=== PATIENT | male | born 1965 | race Two or more races ===

== ENCOUNTER 2021-12-18 17:29 | Emergency (ER) | payer OTHER ==
[~2021-12-18] VITALS: Ht 170.2 cm; Wt 63.5 kg
[2021-12-18 17:33] VITALS: BP 152/83
== END 2021-12-18 20:03 | disposition home or self-care (01) ==
LOC: ER 17:29
DX: S92.352A Displaced fracture of fifth metatarsal bone, left foot, initial encounter for closed fracture (principal); X50.1XXA Overexertion from prolonged static or awkward postures, initial encounter; Y93.89 Activity, other specified; Y92.89 Other specified places as the place of occurrence of the external cause; Y99.8 Other external cause status
CPT/HCPCS: 29515; 73630

== ENCOUNTER 2024-12-04 13:31 | Inpatient (IN) | payer MEDICAID, OTHER ==
[~2024-12-04] VITALS: Ht 170.2 cm; Wt 66.0 kg
--- NOTE | 2024-12-04 13:41 | ECG ---
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
[2024-12-04 13:59] LABS: Basophils # (auto) 0.1 10 ^3/uL (0-0.2); Eosinophils # (auto) 0 10 ^3/uL (0-0.8); Hemoglobin 15.9 g/dL (13.5-17.5); Monocytes # (auto) 0.3 10 ^3/uL (0-1.3); Nucleated Red Blood Cells % 0.1 %; Platelet Count (auto) 323 10^3/uL (140-450)
[2024-12-04 14:01] LABS: Basophils % (auto) 1.9 % (0.0-2.0); Eosinophils % (auto) 0.4 % (0.0-7.0); Hematocrit 45.5 % (41.0-53.0); Lymphocytes # (auto) 1.2 10 ^3/uL (0.4-5.4); Lymphocytes % (auto) 25.7 % (10.0-50.0); Mean Corpuscular Hemoglobin 34.1 pg (28.0-32.0); Mean Corpuscular Volume 97.3 fL (80.0-100.0); Monocytes % (auto) 5.4 % (0.0-12.0); Neutrophils # (auto) 3.1 10 ^3/uL (1.6-8.6); Neutrophils % (auto) 66.6 % (37.0-80.0); Red Blood Cells 4.67 10^6/uL (4.5-5.90); Red Cell Distribution Width 12.5 % (11.8-14.3); White Blood Cell 4.7 10^3/uL (4.4-10.8)
--- NOTE | 2024-12-04 14:12 | ED.PDOC ---
HPI Comments 59y M who presents to the ED for chief complaint of chest pain. Pt states he has been having chest pain for the past 6 days. Pt states the pain is located in the center of his chest, constant, aching in nature, intermittent, wikth pain radiating to the L arm with noted exacerbating factor of deep inspiration and no relieving factors. Pt has associated shortness of breath and chills but otherwise denies any other symptoms at this time. Pt has noted BP of 142/87 with all other vitals in normal range. Pt otherwise states he did not come sooner to the ED for his complaints due to insurance problems. Pt otherwise denies any other symptoms at this time. Chief Complaint: Chest Pain Time Seen by MD: 14:06 Primary Care Provider: [facility] Reviewed Notes: Nurses Notes Allergies: Coded Allergies: NO KNOWN ALLERGIES (Unverified , 12/18/21) Information Source: Patient Mode of Arrival: Ambulatory Brought in by: self Severity: Moderate Timing: Days Duration: Since onset Prehospital treatment: None Location: Chest (R) Radiation: No Radiation Quality: Sharp, Pressure Onset: At Rest Cardiac Risk Factors: None PE Risk Factors: None Modifying Factors: Exertion Associated Signs and Symptoms: SOB, Other (chills) Past Medical History PAST MEDICAL HISTORY: Cancer Surgical History: Denies all surgeries Surgical History (Other): L foot surgery Family History Family History: Reviewed,noncontributory to illness, No family hx of DM, No family hx of Heart keanu, No family hx of HTN, No family hx ofKidney keanu, No family hx of Liver keanu, No family hx of Lung keanu, No family hx of Stroke, Family hx of Cancer Social History Smoker: Non-Smoker Alcohol: Denies ETOH Use Drugs: Denies Drug Use Lives In: Home Constitutional: reports: chills; denies: diaphoresis, fatigue, fever, malaise, sweats, weakness, others EENTM: denies: blurred vision, double vision, ear bleeding, ear discharge, ear drainage, ear pain, ear ringing, eye pain, eye redness, hearing loss, mouth pain, mouth swelling, nasal discharge, nose bleeding, nose congestion, nose pain, photophobia, tearing, throat pain, throat swelling, voice changes, others Respiratory: reports: shortness of breath; denies: cough, hemoptysis, orthopnea, SOB at rest, SOB with excertion, stridor, wheezing, others Cardiovascular: reports: chest pain; denies: dizzy spells, diaphoresis, Dyspnea on exertion, edema, irregular heart beat, left arm pain, lightheadedness, palpitations, PND, syncope, others Gastrointestinal: denies: abdomen distended, abdominal pain, blood streaked bowels, constipated, diarrhea, dysphagia, difficulty swallowing, hematemesis, melena, nausea, poor appetite, poor fluid intake, rectal bleeding, rectal pain, vomiting, others Genitourinary: denies: burning, dysuria, flank pain, frequency, hematuria, incontinence, penile discharge, penile sore, pain, testicle pain, testicle swelling, urgency, others Neurological: denies: dizziness, fainting, headache, left sided numbness, left sided weakness, numbness, paresthesia, pre-existing deficit, right sided numbness, right sided weakness, seizure, speech problems, tingling, tremors, weakness, others Musculoskeletal: denies: back pain, gout, joint pain, joint swelling, muscle pain, muscle stiffness, neck pain, others Integumetry: denies: bruises, change in color, change in hair/nails, dryness, laceration, lesions, lumps, rash, wounds, others Allergic/Immunocompromised: denies: Difficulty Healing, Frequent Infections, Hives, Itching, others Hematologic/Lymphatic: denies: anemia, blood clots, easy bleeding, easy bruising, swollen glands, others Endocrine: denies: excessive hunger, excessive sweating, excessive thirst, excessive urination, flushing, intolerance to cold, intolerance to heat, unexplained weight gain, unexplained weight loss, others Psychiatric: denies: anxiety, bipolar disorder, depression, hopeless, panic disorder, schizophrenia, sleepless, suicidal, others All Other Systems: Reviewed and Negative Physical Exam General Appearance: Moderate Distress HEENT: Normal ENT Inspection, Pharynx Normal, TMs Normal Neck: Full Range of Motion, Non-Tender, Normal, Normal Inspection Respiratory: Chest Non-Tender, Lungs Clear, No Accessory Muscle Use, No Respiratory Distress, Normal Breath Sounds Cardiovascular: No Edema, No JVD, No Murmur, No Gallop, Normal Peripheral Pulses, Regular Rate/Rhythm Breast Exam: Deferred Gastrointestinal: No Organomegaly, Non Tender, No Pulsatile Mass, Normal Bowel Sounds, Soft Genitalia: Deferred Pelvic: Deferred Rectal: Deferred Extremities: No calf tenderness, Normal capillary refill, Normal inspection, Normal range of motion, Non-tender, No pedal edema Musculoskeletal : Apperance: Normal 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 Was a procedure done?: No CP Differential Dx Differential Diagnosis: Angina, Anxiety / Panic Attack, Electrolyte Disorder Differential Diagnosis: HTN Essential, HTN Accelerated Differential Diagnosis: Chest Wall Pain, Costochondritis, Pericarditis X-Ray, Labs, Meds, VS Vital Signs Date Time Temp Pulse Resp B/P (MAP) Pulse Ox O2 Delivery O2 Flow Rate FiO2 12/04/24 14:17 91 12/04/24 14:12 104 12/04/24 13:38 104 12/04/24 13:35 98.9 81 18 142/87 (105) 99 Lab Test 12/04/24 14:44 12/04/24 13:37 Range/Units Troponin I High Sensitivity 3 L 3 L </=54 ng/L White Blood Count 4.7 4.4-10.8 10^3/uL Red Blood Count 4.67 4.5-5.90 10^6/uL Hemoglobin 15.9 13.5-17.5 g/dL Hematocrit 45.5 41.0-53.0 % Mean Corpuscular Volume 97.3 80.0-100.0 fL Mean Corpuscular Hemoglobin 34.1 H 28.0-32.0 pg Mean Corpuscular Hemoglobin Concent 35.0 32.0-36.0 g/dL Red Cell Distribution Width 12.5 11.8-14.3 % Platelet Count 323 140-450 10^3/uL Mean Platelet Volume 7.9 6.9-10.8 fL Neutrophils (%) (Auto) 66.6 37.0-80.0 % Lymphocytes (%) (Auto) 25.7 10.0-50.0 % Monocytes (%) (Auto) 5.4 0.0-12.0 % Eosinophils (%) (Auto) 0.4 0.0-7.0 % Basophils (%) (Auto) 1.9 0.0-2.0 % Neutrophils # (Auto) 3.1 1.6-8.6 10 ^3/uL Lymphocytes # (Auto) 1.2 0.4-5.4 10 ^3/uL Monocytes # (Auto) 0.3 0-1.3 10 ^3/uL Eosinophils # (Auto) 0 0-0.8 10 ^3/uL Basophils # (Auto) 0.1 0-0.2 10 ^3/uL Nucleated Red Blood Cells 0.1 % Sodium Level 137 136-145 mmol/L Potassium Level 3.9 3.5-5.1 mmol/L Chloride Level 100 98-107 mmol/L Carbon Dioxide Level 28 20-31 mmol/L Anion Gap 9 5-15 Blood Urea Nitrogen 11 9-23 mg/dL Creatinine 0.96 0.700-1.30 mg/dL Glomerular Filtration Rate Calc 92 >90 mL/min BUN/Creatinine Ratio 11.5 10.0-20.0 Serum Glucose 101 74-106 mg/dL Calcium Level 10.2 8.7-10.4 mg/dL EXAM: XY CHEST PORTABLE IMPRESSION: No acute cardiopulmonary disease. IV Hep-Lock was established The patient was being given aspirin here in the emergency department's The patient's CBC and chemistry panel are within normal limits The troponin level x2 is negative At this time, the patient was being admitted The diagnosis is acute coronary syndrome Images Reviewed?: Images reviewed and evaluated by me Time of 1ST Reevaluation: 14:35 Reevaluation 1ST: Unchanged Patient Education/Counseling: Diagnosis, Treatment, Prognosis Family Education/Counseling: No Family Present Departure 1 Departure Time of Disposition: 16:42 Impression: Primary Impression: Acute coronary syndrome Disposition: 09 ADMITTED INPATIENT Admit to: Tele Condition: Fair Critical Care Note Critical Care Time?: No Stability Stability form required: Yes Unstable for transfer: Telemetry monitoring (Telemetry monitoring required), ED Physician Assesment (Clinical assesment) Heart Score Heart Score: Heart Score Response (Comments) Value History Slightly Suspicious 0 EKG Normal 0 Age 45-64 1 Risk Factors No known risk factors 0 Troponin Normal limit 0 Total 1 I personally scribed for MANDY CRAVEN MD ([email or web address]) on 12/04/24 at 14:12. Electronically submitted by Negar Lim ([facility] I personally scribed for MANDY CRAVEN MD ([email or web address]) on 12/04/24 at 15:00. Electronically submitted by Negar Lim ([facility]). MANDY CRAVEN MD Dec 04, 2024 14:12
[2024-12-04 14:13] LABS: Chloride 100 mmol/L (98-107); Potassium 3.9 mmol/L (3.5-5.1); Sodium 137 mmol/L (136-145)
[2024-12-04 14:14] LABS: Anion Gap 9 (5-15); Calcium 10.2 mg/dL (8.7-10.4); Carbon Dioxide 28 mmol/L (20-31)
[2024-12-04 14:19] LABS: BUN/Creatinine Ratio 11.5 (10.0-20.0); Blood Urea Nitrogen 11 mg/dL (9-23); Glucose 101 mg/dL (74-106)
--- NOTE | 2024-12-04 14:19 | DVH ---
EXAM: XY CHEST PORTABLE Indication: chest pain Technique: Single frontal view of the chest was obtained Comparison: None FINDINGS: Lines and Tubes: None Lungs: No focal consolidation. Pleura: No effusion. No pneumothorax. Cardiomediastinal contours: Unremarkable Bones: No acute osseous abnormality. IMPRESSION: No acute cardiopulmonary disease.
[2024-12-04 20:10] LABS: Urine Bacteria None Seen /hpf (None Seen)
[2024-12-04 20:25] LABS: Urine Blood Negative /uL (Negative); Urine Clarity Clear (Clear); Urine Color Yellow (Yellow); Urine Mucus FEW (None Seen); Urine Protein, UAD TRACE (Negative); Urine Squamous Epithelial Cell FEW /hpf (<5); Urine Urobilinogen Normal (Negative); Urine WBC 1 /HPF (0-3); Urine pH 5.5 (5.0-9.0)
[2024-12-04] MEDS: LOSARTAN POTASSIUM 50 MG TAB PO SCH (21:15)
[2024-12-04] MEDS: PANTOPRAZOLE 40 MG/10 ML VIAL INJ IV SCH (22:07)
[2024-12-04 23:11] VITALS: BP 155/86; PULSE 68; RESP 18; TEMP 97.8; O2SAT 96
[2024-12-05 01:00] VITALS: BP 131/83; PULSE 72; RESP 18; TEMP 97.7; O2SAT 98
[2024-12-05] MEDS ORDERED: ACETAMINOPHEN 325 MG TAB PO PRN (04:00)
--- NOTE | 2024-12-05 04:00 | DVHHPRES ---
History of Present Illness Resident Creating Document: BARRERA ORTEGA RESIDENT Reason for Visit: Chest pain History of Present Illness A 59y male with PMHx skin cancer who came to the ED due to chest pain, the pain is midsternal and epigastric, that get worse when he lays down and when he moves the arm, no pain with exertion. He denies any other symptoms No home meds Dermatology: Other (skin cancer ) Review of Systems Constitutional: No: Fever, Chills, Sweats, Weakness, Malaise, Other Eyes: No: Pain, Vision change, Conjunctivae inflammation, Eyelid inflammation, Other, Redness ENT: No: Ear pain, Ear discharge, Nose pain, Nose discharge, Nose congestion, Mouth pain, Mouth swelling, Throat pain, Throat swelling, Other Respiratory: No: Cough, Dry, Shortness of breath, SOB with excertion, Wheezing, Hemoptysis, Pleuritic Pain, Sputum, Wheezing, Other Cardiovascular: Chest Pain; No: Palpitations, Orthopnea, Paroxysmal Noc. Dyspnea, Edema, Lt Headedness, Other Gastrointestinal: Abdominal Pain; No: Nausea, Vomiting, Diarrhea, Constipation, Melena, Hematochezia, Other Genitourinary: No Dysuria, No Frequency, No Incontinence, No Hematuria, No Retention, No Other Musculoskeletal: No: other, neck pain, shoulder pain, arm pain, back pain, hand pain, leg pain, foot pain Allergies: Coded Allergies: NO KNOWN ALLERGIES (Unverified , 12/18/21) Medications Current Medications Medications Dose Ordered Sig/Audie Route Start Time Stop Time Status Last Admin Dose Admin Losartan Potassium 50 mg DAILY PO 12/04/24 21:15 Pantoprazole Sodium 40 mg DAILY IV 12/04/24 21:15 12/04/24 22:07 40 MG Exam Vital Signs Vital Signs Date Time Temp Pulse Resp B/P (MAP) Pulse Ox O2 Delivery O2 Flow Rate FiO2 12/05/24 01:00 97.7 72 18 131/83 (99) 98 97.7 12/04/24 23:11 Room Air* 0 21 General Appearance: Alert, Oriented X3, Cooperative HEENT: Atraumatic, PERRLA, EOMI Respiratory: Clear to auscultation Cardiovascular: Regular rate, Normal S1 Abdominal: Normal bowel sounds, Soft Extremities: No clubbing, No cyanosis Skin: No rashes, No breakdown Neuro: Normal gait, Normal speech Labs/Xrays Labs Test 12/04/24 20:09 12/04/24 14:44 12/04/24 13:37 Range/Units Urine Color Yellow Yellow Urine Clarity Clear Clear Urine pH 5.5 5.0-9.0 Urine Specific [place] 1.030 1.001-1.035 Urine Protein Trace H Negative Urine Ketones 2+ H Negative Urine Blood Negative Negative /uL Urine Nitrite Negative Negative Urine Bilirubin Negative Negative Urine Urobilinogen Normal Negative mg/dL Urine Leukocyte Esterase Negative Negative /uL Urine RBC 1 0 - 3 /hpf Urine Microscopic WBC 1 0-3 /HPF Urine Squamous Epithelial Cells Few <5 /hpf Urine Bacteria None seen None Seen /hpf Urine Mucus Few None Seen Urine Glucose Normal Normal mg/dL Troponin I High Sensitivity 3 L </=54 ng/L White Blood Count 4.7 4.4-10.8 10^3/uL Red Blood Count 4.67 4.5-5.90 10^6/uL Hemoglobin 15.9 13.5-17.5 g/dL Hematocrit 45.5 41.0-53.0 % Mean Corpuscular Volume 97.3 80.0-100.0 fL Mean Corpuscular Hemoglobin 34.1 H 28.0-32.0 pg Mean Corpuscular Hemoglobin Concent 35.0 32.0-36.0 g/dL Red Cell Distribution Width 12.5 11.8-14.3 % Platelet Count 323 140-450 10^3/uL Mean Platelet Volume 7.9 6.9-10.8 fL Neutrophils (%) (Auto) 66.6 37.0-80.0 % Lymphocytes (%) (Auto) 25.7 10.0-50.0 % Monocytes (%) (Auto) 5.4 0.0-12.0 % Eosinophils (%) (Auto) 0.4 0.0-7.0 % Basophils (%) (Auto) 1.9 0.0-2.0 % Neutrophils # (Auto) 3.1 1.6-8.6 10 ^3/uL Lymphocytes # (Auto) 1.2 0.4-5.4 10 ^3/uL Monocytes # (Auto) 0.3 0-1.3 10 ^3/uL Eosinophils # (Auto) 0 0-0.8 10 ^3/uL Basophils # (Auto) 0.1 0-0.2 10 ^3/uL Nucleated Red Blood Cells 0.1 % Sodium Level 137 136-145 mmol/L Potassium Level 3.9 3.5-5.1 mmol/L Chloride Level 100 98-107 mmol/L Carbon Dioxide Level 28 20-31 mmol/L Anion Gap 9 5-15 Blood Urea Nitrogen 11 9-23 mg/dL Creatinine 0.96 0.700-1.30 mg/dL Glomerular Filtration Rate Calc 92 >90 mL/min BUN/Creatinine Ratio 11.5 10.0-20.0 Serum Glucose 101 74-106 mg/dL Calcium Level 10.2 8.7-10.4 mg/dL Assessment/Plan Assessment/Plan #Chest pain #Hypertension? #Hypertension crisis #GERD EKG Sinus tachycardia Borderline repolarization abnormality Troponins neg Normal chest x ray Admit Med/surg Cardiac diet Protonix IV Losartan PO Case discussed with Dr Alexander Time spent on care 23 min Plan discussed with: Patient, Other (rn) My Orders Orders - BARRERA ORTEGA RESIDENT Procedure Category Date Status Time Admit ADMIT 12/04/24 Transmitted 21:02 Electrocardigram EKG 12/04/24 Logged 21:02 Losartan Tablet PHA 12/04/24 In Process (Cozaar Tablet) 21:15 Pantoprazole PHA 12/04/24 In Process (Protonix) 21:15 Cardiac DIET 12/05/24 Transmitted Diet-2gna,Lofat,Lochol Breakfast Covid19 Antigen Pati LAB 12/04/24 Logged Rapid Influenza A&B LAB 12/04/24 Logged 21:02 Drug Screen LAB 12/04/24 Logged 21:02 Date of Service: Dec 04, 2024 Billing Provider: LISA ALEXANDER MD Common Visit Codes: [id number] INP/OBS CARE (HIGH) BARRERA ORTEGA RESIDENT Dec 05, 2024 04:00 LISA ALEXANDER MD Dec 05, 2024 11:47
[2024-12-05 04:37] LABS: Basophils # (auto) 0.1 10 ^3/uL (0-0.2); Basophils % (auto) 1.2 % (0.0-2.0); Lymphocytes # (auto) 1.6 10 ^3/uL (0.4-5.4); Monocytes # (auto) 0.3 10 ^3/uL (0-1.3); Nucleated Red Blood Cells % 0.2 %; White Blood Cell 5.1 10^3/uL (4.4-10.8)
[2024-12-05 04:41] LABS: Eosinophils # (auto) 0.1 10 ^3/uL (0-0.8); Eosinophils % (auto) 1.1 % (0.0-7.0); Hematocrit 42.1 % (41.0-53.0); Hemoglobin 14.7 g/dL (13.5-17.5); Lymphocytes % (auto) 31.7 % (10.0-50.0); Mean Corpuscular Hgb Conc. 34.8 g/dL (32.0-36.0); Mean Corpuscular Volume 97.6 fL (80.0-100.0); Monocytes % (auto) 6.5 % (0.0-12.0); Neutrophils % (auto) 59.5 % (37.0-80.0); Platelet Count (auto) 276 10^3/uL (140-450); Red Blood Cells 4.31 10^6/uL (4.5-5.90); Red Cell Distribution Width 12.9 % (11.8-14.3)
[2024-12-05 04:49] LABS: Alanine Aminotransferase 17 U/L (7-40); Alkaline Phosphatase 47 U/L (46-116); Anion Gap 9 (5-15); Blood Urea Nitrogen 13 mg/dL (9-23); Calcium 9.4 mg/dL (8.7-10.4); Carbon Dioxide 26 mmol/L (20-31); Chloride 103 mmol/L (98-107); Glucose 88 mg/dL (74-106); Potassium 4.2 mmol/L (3.5-5.1); Sodium 138 mmol/L (136-145)
[2024-12-05 04:50] LABS: Albumin 4.3 g/dL (3.2-4.8); Aspartate Aminotransferase 17 U/L (13-40)
[2024-12-05 04:51] LABS: Total Protein 6.7 g/dL (5.7-8.2)
[2024-12-05 05:00] VITALS: BP 124/85; PULSE 72; TEMP 97.7; O2SAT 98
[2024-12-05 05:22] LABS: Bilirubin, Total 1.7 mg/dL (0.2-1.0)
[2024-12-05 07:16] LABS: COVID19 ANTIGEN SOFIA FIA NEGATIVE (NEGATIVE); Rapid Influenza A Negative (Negative); Rapid Influenza B Negative (Negative)
[2024-12-05 09:00] VITALS: BP 124/81; PULSE 75; RESP 16; TEMP 98.4; O2SAT 97
--- NOTE | 2024-12-05 13:04 | DVH ---
INDICATION: elevated Billirubin, epigastruic pain, TECHNIQUE: Multiple real-time sonographic images were obtained of the right upper quadrant. COMPARISON: None FINDINGS: The liver demonstrates homogenous echotexture without focal mass lesions. The liver measure s 16 cm. There is no intrahepatic or extrahepatic ductal dilatation. The common duct measures 4 mm . The gallbladder is without evidence of stone or sludge. The gallbladder wall measures 2 mm and is w ithin normal limits. The right kidney measures 11.0 cm. The right kidney is normal in contour, size, and shape. The ech ogenicity is normal. There is no hydronephrosis. The pancreas is not well visualized due to overlying bowel gas. IMPRESSION: No sonographic evidence of gallstones or acute cholecystitis.
--- NOTE | 2024-12-05 13:47 | ECG ---
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
[2024-12-05 15:36] VITALS: BP 124/81; PULSE 78; RESP 20; TEMP 98; O2SAT 98
--- NOTE | 2024-12-05 15:43 | DVHDSRES ---
Discharge Summary Date of Admission Resident Creating Document: BARRERA ORTEGA RESIDENT Dec 04, 2024 at 21:02 Date of Discharge: Dec 05, 2024 Admitting Diagnosis Acute chest pain, rule out ACS Labs/Diagnostic Data: Laboratory Results Test 12/05/24 06:35 12/05/24 04:06 12/04/24 20:09 12/04/24 14:44 Influenza Type A Antigen Negative (Negative) Influenza Type B Antigen Negative (Negative) SARS-CoV-2 Antigen (Rapid) Negative (NEGATIVE) White Blood Count 5.1 10^3/uL (4.4-10.8) Red Blood Count 4.31 10^6/uL (4.5-5.90) Hemoglobin 14.7 g/dL (13.5-17.5) Hematocrit 42.1 % (41.0-53.0) Mean Corpuscular Volume 97.6 fL (80.0-100.0) Mean Corpuscular Hemoglobin 34.0 pg (28.0-32.0) Mean Corpuscular Hemoglobin Concent 34.8 g/dL (32.0-36.0) Red Cell Distribution Width 12.9 % (11.8-14.3) Platelet Count 276 10^3/uL (140-450) Mean Platelet Volume 7.8 fL (6.9-10.8) Neutrophils (%) (Auto) 59.5 % (37.0-80.0) Lymphocytes (%) (Auto) 31.7 % (10.0-50.0) Monocytes (%) (Auto) 6.5 % (0.0-12.0) Eosinophils (%) (Auto) 1.1 % (0.0-7.0) Basophils (%) (Auto) 1.2 % (0.0-2.0) Neutrophils # (Auto) 3.0 10 ^3/uL (1.6-8.6) Lymphocytes # (Auto) 1.6 10 ^3/uL (0.4-5.4) Monocytes # (Auto) 0.3 10 ^3/uL (0-1.3) Eosinophils # (Auto) 0.1 10 ^3/uL (0-0.8) Basophils # (Auto) 0.1 10 ^3/uL (0-0.2) Nucleated Red Blood Cells 0.2 % Sodium Level 138 mmol/L (136-145) Potassium Level 4.2 mmol/L (3.5-5.1) Chloride Level 103 mmol/L (98-107) Carbon Dioxide Level 26 mmol/L (20-31) Anion Gap 9 (5-15) Blood Urea Nitrogen 13 mg/dL (9-23) Creatinine 0.93 mg/dL (0.700-1.30) Glomerular Filtration Rate Calc 96 mL/min (>90) BUN/Creatinine Ratio 14.0 (10.0-20.0) Serum Glucose 88 mg/dL (74-106) Calcium Level 9.4 mg/dL (8.7-10.4) Total Bilirubin 1.7 mg/dL (0.2-1.0) Aspartate Amino Transferase (AST) 17 U/L (13-40) Alanine Aminotransferase (ALT) 17 U/L (7-40) Alkaline Phosphatase 47 U/L (46-116) Total Protein 6.7 g/dL (5.7-8.2) Albumin 4.3 g/dL (3.2-4.8) Thyroid Stimulating Hormone (TSH) 1.82 uIU/mL (0.55-4.78) Urine Color Yellow (Yellow) Urine Clarity Clear (Clear) Urine pH 5.5 (5.0-9.0) Urine Specific [place] 1.030 (1.001-1.035) Urine Protein Trace (Negative) Urine Ketones 2+ (Negative) Urine Blood Negative /uL (Negative) Urine Nitrite Negative (Negative) Urine Bilirubin Negative (Negative) Urine Urobilinogen Normal mg/dL (Negative) Urine Leukocyte Esterase Negative /uL (Negative) Urine RBC 1 /hpf (0 - 3) Urine Microscopic WBC 1 /HPF (0-3) Urine Squamous Epithelial Cells Few /hpf (<5) Urine Bacteria None seen /hpf (None Seen) Urine Mucus Few (None Seen) Urine Glucose Normal mg/dL (Normal) Troponin I High Sensitivity 3 ng/L (</=54) Other Laboratory Tests 12/05/24 04:06 Brief Hx & Hospital Course: -HPI- Patient is 59 years old male with history of skin cancer came with a complaint of lower sternal chest pain started 5 days before, was getting worse. Patient reported pain was 5/10 at home, pulsatile, episodic, no radiation, some worsening with lying down then it gets better and also some improvement pain with the walking around the as per patient.. Patient also endorsed some shortness of breaths. Patient denied any fever, acute joint pain or swelling, dysarthria or change in vision. Initial lab workup revealed elevated bilirubin 1.7, negative for troponin I. EKG revealed sinus tachycardia, no ST elevation or depression. CXR no acute cardiopulmonary abnormality. Second organ ultrasound ruled out cirrhosis of liver of cholecystitis or pancreatitis. Hospital course-patient came to the hospital due lower external chest pain for last 4-5 days. Patient was admitted to the hospital due to chest pain, rule out acute coronary syndrome. Initial lab workup revealed Initial lab workup revealed elevated bilirubin 1.7, negative for troponin I. EKG revealed sinus tachycardia, no ST elevation or depression. CXR no acute cardiopulmonary abnormality. Ultrasound of the abdomen- No sonographic evidence of gallstones or acute cholecystitis. Patient was treated conservatively on symptom improved. Repeat EKG no acute changes, sinus rhythm, no acute ST elevation or depression. Patient is being discharged home with the baclofen 5 mg q.h.s. for 5 days. Tylenol p.r.n.. Patient was advised to follow up with the primary care physician in 1 week. Patient's meds were sent to the pharmacy electronically. Patient was hemodynamically stable on discharge. Diagnosis Acute chest pain likely musculoskeletal/costochondritis, ACS ruled out GERD Uncontrolled hypertension, newly diagnosed History of skin cancer Elevated bilirubin, ruled out cirrhosis of liver or cholecystitis Discharge plan Continue baclofen 5 mg at night for 5 days Tylenol 650 mg by mouth every 6 or as needed for 7 days Pantoprazole 40 mg daily for 2 weeks Please follow up with the primary care physician in 1 week No vigorous chest exercise next 2 weeks Operations or Procedures [place] [address] Ph: [phone] DIAGNOSTIC IMAGING Diagnostic Imaging Report : [id number] Signed PATIENT: FELICIA BEST ACCT: [id number] UNIT: [id number] : 1965 LOC: OVERFLOW ROOM / BED: [facility]-ER / A AGE / SEX: 59 / M ADM STATUS: ADM IN SERVICE 1155 ORDERING PHYSICIAN: NISSA IBANEZ RESIDENT PROCEDURE(s): ABDL - ABDOMEN LIMITED REASON: elevated Billirubin, epigastruic pain, ORDER NUMBER(s): [id number], ACCESSION NUMBER(s): [id number] INDICATION: elevated Billirubin, epigastruic pain, TECHNIQUE: Multiple real-time sonographic images were obtained of the right upper quadrant. COMPARISON: None FINDINGS: The liver demonstrates homogenous echotexture without focal mass lesions. The liver measures 16 cm. There is no intrahepatic or extrahepatic ductal dilatation. The common duct measures 4 mm. The gallbladder is without evidence of stone or sludge. The gallbladder wall measures 2 mm and is within normal limits. The right kidney measures 11.0 cm. The right kidney is normal in contour, size, and shape. The echogenicity is normal. There is no hydronephrosis. The pancreas is not well visualized due to overlying bowel gas. IMPRESSION: No sonographic evidence of gallstones or acute cholecystitis. ATED BY: LUIS FELIPE DELCID MD DICTATED DATE/TIME: 12/05/24 1303 SIGNED BY: LUIS FELIPE DELCID MD SIGNED DATE/TIME: 12/05/24 130 CC: [place] [address] Ph: [phone] DIAGNOSTIC IMAGING Diagnostic Imaging Report : [id number] Signed PATIENT: FELICIA BEST ACCT: [id number] UNIT: [id number] : 1965 LOC: ER ROOM / BED: / AGE / SEX: 59 / M ADM STATUS: REG ER SERVICE 1338 ORDERING PHYSICIAN: MANDY CRAVEN MD PROCEDURE(s): CXRP - CHEST PORTABLE REASON: chest pain ORDER NUMBER(s): [id number], ACCESSION NUMBER(s): [id number] EXAM: XY CHEST PORTABLE Indication: chest pain Technique: Single frontal view of the chest was obtained Comparison: None FINDINGS: Lines and Tubes: None Lungs: No focal consolidation. Pleura: No effusion. No pneumothorax. Cardiomediastinal contours: Unremarkable Bones: No acute osseous abnormality. IMPRESSION: No acute cardiopulmonary disease. ATED BY: LUIS FELIPE DELCID MD DICTATED DATE/TIME: 12/04/241417 SIGNED BY: LUIS FELIPE DELCID MD SIGNED DATE/TIME: 12/04/24 1418 CC: Condition at Discharge: Stable Final Diagnosis/Problems List Acute chest pain likely musculoskeletal, ACS Ruled out Acute chest pain likely musculoskeletal/costochondritis, ACS ruled out Uncontrolled hypertension, newly diagnosed History of skin cancer Elevated bilirubin, ruled out cirrhosis of liver or cholecystitis GERD Discharge Disposition: Home Discharge Instruct/Medications Diet: Regular Activity: Light activity Activity comment: LIGHT ACTIVITY FOR 2 WEEKS Follow Up/Referral: Please follow up with the primary care physician in 1 week No vigorous chest exercise next 2 weeks Medications: Baclofen 5 mg by mouth at night for 5 days OTC Tylenol 650 every 6 hours as needed Pantoprazole 40 mg every day for 2 weeks Discharge Statement: "Patient was advised to return to the ER or call 911 if any headaches, dizziness, shortness of breath, chest pain, abdominal pain, bleeding, fevers, or worsening of medical condition. Patient was counseled about treatment plan, medications, possible side effects, patientverbalized understanding. All questions were answered to the best of my ability. This discharge took greater then 30 minutes in planning, reviewing documentation, counseling the patient, and discussing with other team members." ASSESSMENT ASSESSMENT Assessment Acute chest pain likely musculoskeletal, ACS Ruled out GERD Date of Service: Dec 05, 2024 Billing Provider: DEBBI BONNER MD Common Visit Codes: 58671-BMN/OBS DISCH DAY >30min NISSA IBANEZ Dec 05, 2024 15:43 DEBBI BONNER MD Dec 09, 2024 23:57
[2024-12-05] MEDS ORDERED: PANT40T PO (19:35)
[2024-12-05] MEDS ORDERED: BACL5TAB2 PO (19:35)
--- NOTE | 2024-12-08 10:52 | ECG ---
[facility] Test Date: 2024-12-05 Test Time: 15:19:29 Pat Name: FELICIA BEST Department: [facility] Room: [address] [place] [address] Gender: M [employer] Performer: LV : 1965 Requested By: BARRERA VALADEZ Order Number: [id number] Reading MD: Robert Miller Measurements Intervals [place] Rate: 70 P: 76 IA: 101 QRS: 56 QRSD: 102 T: 66 QT: 385 QTc: 416 Interpretive Statements Sinus rhythm Short IA interval Anteroseptal infarct, age indeterminate Baseline wander in lead(s) V3 Electronically Signed On 12-09-2024 21:51:26 PST by Robert Miller Please click the below link to view image of tracing.
== END 2024-12-05 16:00 | disposition home or self-care (01) | DRG 203 ==
LOC: ER 13:31 → OVERFLOW 21:02
PROVIDERS: ADMIT Student in an Organized Health Care Education/Training Program; ATTEND Student in an Organized Health Care Education/Training Program
DX: M94.0 Chondrocostal junction syndrome [Tietze] (principal); I16.9 Hypertensive crisis, unspecified; Z20.822 Contact with and (suspected) exposure to COVID-19; K21.9 Gastro-esophageal reflux disease without esophagitis; Z85.828 Personal history of other malignant neoplasm of skin; Z79.899 Other long term (current) drug therapy
CPT/HCPCS: 36415; 71045; 76705; 80048; 80053; 81001; 84443; 84484; 85025; 87426; 87804; 93005; G0378; J2470